=== PATIENT | male | born 1950 | race Caucasian/White ===

== ENCOUNTER 2016-08-06 11:14 | Observation (INO) | payer MEDICARE, OTHER ==
--- NOTE | ~2016-08-06 | CR72 ---
[facility] A Service of [facility] RADIOLOGY TEXT RESULTS PATIENT: CHRISTINE VALDEZ LOCATION: [facility] : 50 UNIT #: [id number] AGE: [address]: Rob Lassiter MD SEX: M ORDER DR: [id number] [id number] [facility]. [place], [place] [address] [id number] MR#: [id number] Acc #: [id number] NAME: CHRISTINE VALDEZ. : 1950 SEX: M STUDY DATE/TIME: 08/06/2016 10:31 UNIT: [facility] ROOM: STUDY DESCRIPTION: CR Chest Single View Portable Attending Physician: Sneha Carter M.D. Ordering Physician: Sneha Carter M.D. Primary Care Physician: Peng Chow M.D. MEDICAL IMAGING REPORT This report is preliminary unless electronic signature is present EXAM Chest portable, 08/06/2016 10:31 hours HISTORY 66-year-old man with left-sided chest pain, shortness of air and increased heart rate today. History of hypertension, smoking and diabetes. COMPARISON 06/25/2014 FINDINGS 2 upright portable chest films demonstrates stable heart size at the upper limits of normal and stable mildly tortuous aorta. There is diffuse pulmonary venous distension and mild cephalization with mild basilar interstitial prominence, increased over the comparison study 06/08/2014 suggesting an element of mild edema. No effusions are seen. IMPRESSION Stable heart size with pulmonary venous distension, mild cephalization and mild diffuse increase in the interstitial markings in the lungs as compared to 06/25/2014. Findings suggest an element of mild edema. No effusion seen. Dictated by... Zo Dixon M.D. THIS IS AN ELECTRONICALLY VERIFIED REPORT Zo Dixon M.D. at 08/06/2016 1:34 PM Bibiana TD: 08/06/2016 12:00 JOB #: [id number] [facility] A Service of [facility] RADIOLOGY TEXT RESULTS PATIENT: CHRISTINE VALDEZ [facility] [id number] : 50 UNIT #: [id number] AGE: [address]: Rob Lassiter MD SEX: M ORDER DR: MEDICAL IMAGING REPORT COPY
--- NOTE | ~2016-08-06 | EKG ---
PATIENT: CHRISTINE VALDEZ UNIT #: [id number] Ventricular Rate: 162 BPM Atrial Rate: 96 BPM QRS Duration: 114 ms Q-T Interval: 292 ms QTC Calculation(Bezet): 479 ms Calculated R [place]: 126 degrees Calculated T [place]: 1 degrees Diagnosis Line: Supraventricular tachycardia Diagnosis Line: Right axis deviation Diagnosis Line: Abnormal ECG Diagnosis Line: When compared with ECG of 06-AUG-2016 10:04, Diagnosis Line: (unconfirmed) Diagnosis Line: Vent. rate has increased BY 89 BPM Diagnosis Line: QRS axis Shifted right Diagnosis Line: Confirmed by LOLLY REYES MD ([id number]) on Diagnosis Line: 08/06/2016 3:28:10 PM INTERPRETING MD: ERIC PAL
--- NOTE | ~2016-08-06 | CO ---
Unit #: [id number] #: [id number] Patient: CHRISTINE VALDEZ [id number] [address] [place], [place] [address] [id number] I MR#: [id number] NAME: CHRISTINE VALDEZ. ROOM: 302 Age: 66 Sex: M Admission Date: 08/06/2016 : 1950 Attending Physician: Rob Lassiter M.D. Primary Care Physician: Peng Chow M.D. Requesting Physician: Rob Lassiter M.D. Consultation Date: 08/06/2016 CONSULTATION REPORT This is a 66-year-old white male with a past medial history of hypertension, SVT, diabetes, hyperlipidemia, nonobstructive coronary artery disease and angina. He presented on the morning of 08/06/16 with chest pain and, while in the ER, had an episode of atrial tachycardia. He states that he had his only episode of chest pain occur this morning when he was driving. 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 He stopped and was walking across the parking lot and that is when his chest pain was worse. When he stopped his activity and rested, the pain was more relieved. However, it was constant and present to some degree until he arrived to the ER and received medications including aspirin and nitro. He also tells me he had associated palpitations and was found to be in normal sinus rhythm on admission but converted to an atrial tachycardia and then converted back to normal sinus rhythm with six of adenosine which was given in the ER. The patient denies dyspnea on exertion, really shortness of breath at all. However, he did tell me that his pain was made worse with taking a deep breath. He has orthopnea, cannot lay flat at night but denies any PND. He denies any lower extremity edema. He denies any other episodes of chest pain. He has not had any recent fever or sickness. No change in stool. No blood noted to stool. Denied any diaphoresis and denied any nausea and vomiting. Cardiac enzymes once had been drawn in the ER which were negative. EKG showed normal sinus rhythm on admission. On tele review, he did have an episode of atrial type tachycardia. It was about 180 beats per minute, and was relieved back to normal sinus rhythm with adenosine. Cardiac testing includes last cath in 2014 at [facility]. I do not have details of that report but the patient tells me he had nonobstructive coronary artery disease. He also had a cath, which I have the report of, in 2007, done by Dr. Ingram. Diffuse coronary artery disease, mild to moderate, with right coronary dominant. There does not appear to be any rate limiting flow of the distal third of the LAD with some 50% to 60% stenosis. The vessel is small past that point. Normal LV function with normal left ventricular hemodynamics. He was recommended medical therapy at that time. He also had a 2D echo and a stress test which were unremarkable at that time. He denies any major change to his weight. His chest pain occurred to mid to left anterior chest right at the base of his ribs. Chest pain lasted about an hour. PAST MEDICAL HISTORY 1. Angina. 2. Hypertension. 3. Coronary artery disease, nonobstructive. Unit #: [id number] #: [id number] Patient: CHRISTINE VALDEZ 4. Hyperlipidemia. 5. Diabetes. PAST SURGICAL HISTORY Includes: 1. Appendectomy. 2. Cholecystectomy. 3. Knee surgery. SOCIAL HISTORY He has been a smoker. He smoked up to two packs per day for many years and he quite cold turkey in 2005 and has not resumed since. He is a nondrinker and denies any illicit drug use. 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 FAMILY HISTORY His mother very early at 43. She had an [place] and she of some complications from her heart at the age of 47. MEDICATIONS Home medications includes: 1. Glucophage 1000 mg b.i.d. 2. Glucotrol 5 mg daily. 3. Protonix 40 mg daily. 4. Imdur 30 mg daily. 5. Toprol XL 25 mg b.i.d. 6. Norvasc 5 mg daily. 7. Lipitor 10 mg daily. 8. Cozaar 100 mg daily. 9. Aspirin 325 daily. 10. At some point, he had been on Lotrel . However, he was taken off that due to an LEONELA-induced cough. ALLERGIES None. REVIEW OF SYSTEMS Twelve point review of systems was done as noted in the HPI. Otherwise, review of systems was negative. PHYSICAL EXAM VITAL SIGNS: Temperature 98.0, heart rate of 71, respirations 11, blood pressure 124/79. His weight is 101 kilos. His BMI is 72. HEENT: He is normocephalic, atraumatic with pupils equal, round, reactive to light and accommodation with extraocular movements intact. Oral mucosal membrane is moist. GENERAL: He is a well developed, well nourished male seen in ER trauma 2 room, in no acute distress. NEURO: He is alert and oriented x3, pleasant and cooperative. LUNGS: Mostly clear to auscultation bilaterally with some diminishment in the bases. He has decreased respiratory effort. CARDIOVASCULAR: He is in a regular rate and rhythm. S1, S2 noted. No murmurs, gallops rubs appreciated. He denies any chest wall tenderness. ABDOMEN: Mildly firm and distended but nontender. Bowel sounds are positive. EXTREMITIES: He has no edema noted and very palpable pulses. NECK: Supple with no JVD and no bruits auscultated. Unit #: [id number] #: [id number] Patient: CHRISTINE VALDEZ DIAGNOSTIC STUDIES CARDIOVASCULAR: EKG showed normal sinus rhythm, rate of 73. IMAGING: Chest x-ray on 08/06/16 showed mild edema with no effusion. Stable heart size. LABORATORY: Sodium 135, potassium 4, chloride 102, CO2 24, BUN 16, creatinine 0.8, glucose 214, mag is 1.6, BNP was 16. Coags were unremarkable. D-dimer was 290. Troponin was less than 0.05. WBC 6.4, hemoglobin 14.6, hematocrit 42.0, platelet count 102. IMPRESSION 1. Intermediate risk factors for coronary artery disease with a history of nonobstructive coronary artery disease. 2. Hypertension. 3. History of hyperlipidemia. 4. Diabetes. 5. Angina. 6. Obesity with a BMI of 32. PLAN Cardiology was asked to see him for his chest pain and a short course of SVT which appears to be atrial in origin with narrow complex. We are calling this atrial tachycardia. He does have symptoms of palpitations. We will check a 2D echo and do an exercise stress test on him in the a.m. He will need to be NPO for the stress test after midnight. We will resume his Cozaar 100 mg daily and Norvasc 5 mg daily with parameters to hold for systolic less than 100. Increase his Lipitor dose to 40 mg and check a fasting lipid panel. BMP, mag level and troponin will be checked in the a.m. A 12 lead EKG will also be obtained. We will get records sent over from [facility] for a recent heart cath that he had in 2014. His Toprol should be increased to 50 mg b.i.d. with parameters to hold for heart rate less than 16 and systolic BP less than 100 for his recurrent tachycardia episodes. His 325 aspirin will be changed to 81 daily. Thank you for this consult. We will continue to follow him throughout hospitalization. Further plan once tests are results. Dictated by... Dior Malloy APRN for Piedad Gloria TD: 08/07/2016 07:34 JOB #: [id number] Unit #: [id number] #: [id number] Patient: CHRISTINE VALDEZ CONSULTATION REPORT X X CONSULTATION REPORT
--- NOTE | ~2016-08-06 | EKG ---
PATIENT: CHRISTINE VALDEZ UNIT #: [id number] Ventricular Rate: 76 BPM Atrial Rate: 76 BPM P-R Interval: 202 ms QRS Duration: 106 ms Q-T Interval: 326 ms QTC Calculation(Bezet): 366 ms P [place]: 62 degrees Calculated R [place]: 57 degrees Calculated T [place]: 32 degrees Diagnosis Line: Normal sinus rhythm with sinus arrhythmia Diagnosis Line: Normal ECG Diagnosis Line: When compared with ECG of 06-AUG-2016 10:38, Diagnosis Line: (unconfirmed) Diagnosis Line: Sinus rhythm has replaced Atrial fibrillation Diagnosis Line: Vent. rate has decreased BY 60 BPM Diagnosis Line: Confirmed by LOLLY REYES MD ([id number]) on Diagnosis Line: 08/06/2016 3:28:14 PM INTERPRETING MD: ERIC PAL
--- NOTE | ~2016-08-06 | EKG ---
PATIENT: CHRISTINE VALDEZ UNIT #: [id number] Ventricular Rate: 136 BPM Atrial Rate: 122 BPM QRS Duration: 102 ms Q-T Interval: 286 ms QTC Calculation(Bezet): 430 ms Calculated R [place]: 94 degrees Calculated T [place]: -4 degrees Diagnosis Line: Atrial fibrillation with rapid ventricular Diagnosis Line: response Diagnosis Line: Rightward axis Diagnosis Line: Abnormal QRS-T angle, consider primary T wave Diagnosis Line: abnormality Diagnosis Line: Abnormal ECG Diagnosis Line: When compared with ECG of 06-AUG-2016 10:33, Diagnosis Line: (unconfirmed) Diagnosis Line: Atrial fibrillation has replaced Sinus rhythm Diagnosis Line: Confirmed by LOLLY REYES MD ([id number]) on Diagnosis Line: 08/06/2016 3:27:49 PM INTERPRETING MD: ERIC PAL
--- NOTE | ~2016-08-06 | TH ---
Unit #: [id number] #: [id number] Patient: CHRISTINE VALDEZ [id number] [address] [address] [id number] I MR#: [id number] NAME: CHRISTINE VALDEZ : 1950 SEX: M STUDY DATE/TIME: UNIT: C3A U ROOM: [address] [place] [address] DESCRIPTION: Nuclear Study Attending Physician: Rob Lassiter M.D. Primary Care Physician: Peng Chow M.D. CARDIOLOGY REPORT EXAM Nuclear Study Please see stress test for results of Nuclear Study. Dictated by... Mariusz Marmolejo M.D. NKAlla/jannet TD: 08/09/2016 11:02 JOB #: [id number] CARDIOLOGY REPORT X Mariusz Marmolejo MD CARDIOLOGY REPORT
--- NOTE | ~2016-08-06 | EKG ---
PATIENT: CHRISTINE VALDEZ UNIT #: [id number] Ventricular Rate: 73 BPM Atrial Rate: 73 BPM P-R Interval: 186 ms QRS Duration: 106 ms Q-T Interval: 378 ms QTC Calculation(Bezet): 416 ms P [place]: 24 degrees Calculated R [place]: -13 degrees Calculated T [place]: 3 degrees Diagnosis Line: Normal sinus rhythm Diagnosis Line: Normal ECG Diagnosis Line: When compared with ECG of 25-JUN-2014 17:43, Diagnosis Line: Inverted T waves have replaced nonspecific T wave Diagnosis Line: abnormality in Inferior leads Diagnosis Line: Confirmed by LOLLY REYES MD ([id number]) on Diagnosis Line: 08/06/2016 3:27:37 PM INTERPRETING MD: ERIC PAL
--- NOTE | ~2016-08-06 | EKG ---
PATIENT: CHRISTINE VALDEZ UNIT #: [id number] Ventricular Rate: 68 BPM Atrial Rate: 68 BPM P-R Interval: 202 ms QRS Duration: 108 ms Q-T Interval: 398 ms QTC Calculation(Bezet): 423 ms P [place]: 57 degrees Calculated R [place]: 19 degrees Calculated T [place]: 17 degrees Diagnosis Line: Normal sinus rhythm Diagnosis Line: Normal ECG Diagnosis Line: When compared with ECG of 06-AUG-2016 10:39, Diagnosis Line: No significant change was found Diagnosis Line: Confirmed by LOLLY REYES MD ([id number]) on Diagnosis Line: 08/08/2016 11:23:16 AM INTERPRETING MD: ERIC PAL
--- NOTE | ~2016-08-06 | ST ---
Unit #: [id number] #: [id number] Patient: CHRISTINE VALDEZ [id number] [address] [address] [id number] I MR#: [id number] NAME: CHRISTINE VALDEZ. : 1950 SEX: M STUDY DATE/TIME: UNIT: C3A U ROOM: [facility] STUDY DESCRIPTION: Stress Test/Nuclear Study Attending Physician: Rob Lassiter M.D. Primary Care Physician: Peng Chow M.D. CARDIOLOGY REPORT EXAM Combined EKG and nuclear part of the test. DESCRIPTION Baseline heart rate is 73 beats per minute, blood pressure 153/102. Patient exercised on modified Carlos protocol for 9 minutes 35 seconds achieving 7.50 METs. Peak heart rate 137 beats per minute which is 88% of predicted heart rate. Peak blood pressure is 202/114. Patient's baseline EKG showing sinus rhythm with incomplete right bundle branch block. During exercise recovery, no further ST-T changes. The patient also received 10.42 mCi of Cardiolite at rest and 29.8 mCi of Cardiolite during stress. Both sets of images were compared. The patient shows fairly uniform uptake of radiotracer. No defect was noted. Patient has gated SPECT scan done which shows normal LV size and function, ejection fraction is 63%. INTERPRETATION OF THE TEST 1. Average exercise tolerance. 2. Hypertensive response to exercise with uncontrolled hypertension which means the patient's hypertension is poorly controlled. 3. EKG part of the test negative for stress-induced ischemia. 4. Nuclear part of the test negative for myocardial ischemia. 5. Gated SPECT scan shows normal LV size and function. Dictated by... Piedad Mendez/jannet TD: 08/09/2016 10:57 JOB #: [id number] Unit #: [id number] #: [id number] Patient: CHRISTINE VALDEZ CARDIOLOGY REPORT X Mariusz Marmolejo MD CARDIOLOGY REPORT
--- NOTE | ~2016-08-06 | HP ---
Unit #: [id number] #: [id number] Patient: CHRISTINE VALDEZ [id number] [address] [place], [place] [address] [id number] I MR#: [id number] NAME: CHRISTINE VALDEZ. ROOM: 302 Age: 66 Sex: M Admission Date: 08/06/2016 : 1950 Attending Physician: Rob Lassiter M.D. Primary Care Physician: Peng Chow M.D. HISTORY AND PHYSICAL HISTORY OF PRESENT ILLNESS The patient is a 66-year-old white male with a history of osteoarthritis, left total knee replacement, chronic low back pain secondary to herniated disc, hypertension, type 2 diabetes mellitus, coronary artery disease, nonobstructive, by cardiac cath following an abnormal stress test about a year and a half to two years ago at [facility], history of colonic polyps, diverticular disease, GE reflux disease, who presents to the emergency room with sudden onset of chest pain this morning while walking. When he got back to his truck he sat down and it improved but did not resolve. He was then brought to the emergency room by a coworker. Here he was given Nitrostat and immediately went into SVT, treated with adenosine and converted back to a sinus rhythm. Initial cardiac enzymes are normal but he has only had one set so far. His initial EKG was fairly unremarkable. D-dimer was normal as well. Rest of his labs were fairly unremarkable except for a slightly low platelet count of 102,000. ALLERGIES He has no known drug allergies. MEDICATIONS Meds prior to admission: 1. Glucophage 1000 mg b.i.d. 2. Glucotrol 5 mg daily. 3. Protonix 40 mg daily. 4. Imdur ER 30 mg daily. 5. Toprol-XL 25 mg b.i.d. 6. Norvasc 5 mg daily. 7. Lipitor 10 mg daily. 8. Cozaar 100 mg daily. 9. Aspirin 325 mg daily. 10. Lotrel 5/40 one p.o. daily. 11. Coreg ER 40 mg daily. PAST MEDICAL HISTORY Again he has a history of hypertension and hyperlipidemia, type 2 diabetes mellitus, lumbar spinal stenosis, nonobstructive coronary artery disease, GE reflux disease, allergic rhinitis, diverticular disease, colonic polyps. PAST SURGICAL HISTORY Left total knee replacement, cholecystectomy, appendectomy, right elbow repair, cardiac cath, polypectomy. 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 FAMILY HISTORY Family history is noncontributory. PHYSICAL EXAMINATION GENERAL: On physical exam he is awake, alert, oriented x3, in no acute distress. VITAL SIGNS: Afebrile, pulse 84, respirations 16, blood pressure 159/97, room air O2 sat 99%. HEENT: HEENT is unremarkable except for nasal cannula in place. NECK: Neck was supple, without JVD, bruits, adenopathy or thyromegaly. CHEST: Clear to auscultation. HEART: Heart has a regular rate and rhythm without any murmurs, gallops or rubs. ABDOMEN: Abdomen was large, soft, nondistended, nontender, with positive bowel sounds and no hepatosplenomegaly. EXTREMITIES: Show no clubbing, cyanosis and trace bilateral lower extremity edema. GENITOURINARY: Deferred. ANO-RECTAL: Deferred. NEUROLOGIC: Exam is grossly intact. DIAGNOSTIC STUDIES LABORATORY VALUES: Cardiac enzymes normal. CBC normal except for a platelet count of 102,000. CMP normal except for a random blood sugar at 214. D-dimer of 290. PT and INR of 1.0. BNP is 16. Magnesium 1.6. TSH 2.71. LDL 64. IMAGING: Chest x-ray questionable mild pulmonary edema. CARDIOVASCULAR: EKG #1 showed normal sinus rhythm, some nonspecific T inversions in the inferior leads which are probably not significant. EKG #2 afib. EKG #3 SVT. EKG #4 back into sinus rhythm. IMPRESSION 1. Chest pain. 2. History of nonobstructive coronary artery disease by cardiac catheterization within the past two years. 3. Paroxysmal supraventricular tachycardia likely induced by the Nitrostat. The patient does give a history of palpitations off and on in the past. 4. Hypertension. 5. Thrombocytopenia. 6. Type 2 diabetes mellitus. 7. Osteoarthritis. 8. Lumbar spinal stenosis. 9. History of colonic polyps. 10. Gastroesophageal reflux disease. 11. Hyperlipidemia. 12. History of diverticular disease. 13. Status post left total knee replacement. 14. Status post appendectomy. Unit #: [id number] #: [id number] Patient: CHRISTINE VALDEZ 15. Status post cholecystectomy. 16. Status post right elbow repair. PLAN Serial cardiac enzymes, EKG, Cardiology consulted, nitroglycerin paste, Lovenox, aspirin, beta blockers, 2D echo and Cardiolite planned for tomorrow is enzymes are negative. Hold Glucophage while here at the hospital. There is obviously no reason for the patient to be on Coreg and metoprolol and Cardiology has increased his metoprolol and discontinued the Coreg. There is also no reason for him to be on an LEONELA inhibitor and Cozaar and the Lotrel has been discontinued and changed to plain Norvasc. He will be placed on Accu-Cheks a.c. and h.s. and low dose sliding scale insulin. Further evaluation pending results of the above. Dictated by Piedad Byrd/maya TD: 08/06/2016 17:50 JOB #: [id number] HISTORY AND PHYSICAL X Rob Lassiter MD HISTORY AND PHYSICAL
[2016-08-06 10:37] LABS: POC - CKMB <1.0 ng/mL (0.0-7.9); POC - TROPONIN <0.05 ng/mL (<=0.05)
[2016-08-06 10:57] LABS: BASOPHIL# 0.1 X10e3 (0-0.3); EOSINOPHIL# 0.2 X10e3 (0-0.7); EOSINOPHIL% 2.8 % (0.0-7.0); HEMOGLOBIN 14.6 gm/dL (13.0-16.0); LYMPHOCYTE# 1.3 X10e3 (1.0-3.5); LYMPHOCYTE% 20.9 % (17.0-45.0); MEAN CELL VOLUME 87.7 FL (83-96); MEAN CORPUSCULAR HEMOGLOBIN 30.5 PG (28-34); MEAN CORPUSCULAR HGB CONC 34.8 g/dL (30-36); MEAN PLATELET VOLUME 9.8 FL (6.5-11.5); MONOCYTE# 0.9 X10e3 (0-1.0); NEUTROPHIL# 3.9 X10e3 (1.5-7.1); NEUTROPHIL% 61.3 % (40-75); PLATELET COUNT 102 X10e3 (140-420); RED BLOOD COUNT 4.79 X10e (3.90-5.60); RED CELL DISTRIBUTION WIDTH 13.4 % (11.0-15.5); WHITE BLOOD COUNT 6.4 X10e3 (4.0-10.5)
[2016-08-06 10:59] LABS: DIFF IND NO
[2016-08-06 11:08] LABS: PROTHROMBIN TIME (PATIENT) 10.9 SECONDS (9.6-11.5)
[~2016-08-06 11:14] MED LIST: ASPIRIN PO; ATORVASTATIN CA10 MG PO; CHOLESTEROL PILL; COREG PO; COUMADIN7.5 MG PO; GLUCOTROL PO; HYDROCODONE-APA1 T55 PO; IMDUR PO; IMDUR-ER30 M1 PO; LIPITOR; LOTREL 5/401 CAP PO; LOTREL PO; METFORMIN HCL500 M1 PO; METFORMIN PO; NORVASC PO; PREVACID PO; PROTONIX PO; TOPROL XL PO; TYLENOL325 M1 PO
[2016-08-06] MEDS ORDERED: LIPITOR PO (11:15)
[2016-08-06 11:29] LABS: ALBUMIN SERUM 4.2 g/dL (3.5-5.0); ALKALINE PHOSPHATASE 62 U/L (32-92); ALT (SGPT) 26 U/L (10-40); AST (SGOT) 21 U/L (10-42); BILIRUBIN, DIRECT 0.2 mg/dL (0.0-0.2); BILIRUBIN,INDIRECT 0.6 mg/dL (0.0-0.9); BILIRUBIN,TOTAL 0.8 mg/dL (0.2-2.0); BLOOD UREA NITROGEN 16 mg/dL (9-23); CARBON DIOXIDE 24 mmol/L (22-31); CHLORIDE 102 mmol/L (100-111); CREATININE SERUM 0.8 mg/dL (0.6-1.4); GLOM FILT RATE Estimated ABOVE60 mL/min (>60); GLUCOSE FASTING 214 mg/dL (70-110); SODIUM 135 mmol/L (135-145)
[2016-08-06] MEDS ORDERED: IMDUR-ER30 M3 PO (12:49)
[2016-08-06] MEDS ORDERED: COZAAR100 MG PO (12:49)
[2016-08-06] MEDS ORDERED: BAYER ASPIRIN325 M1 PO (12:50)
[2016-08-06] MEDS ORDERED: COREG PO (12:53)
[2016-08-06] MEDS ORDERED: LOTREL 5/401 CAP PO (12:53)
[2016-08-06 15:23] LABS: CHOLESTEROL 120 mg/dL (0-200); HDL CHOLESTEROL 30 mg/dL (29-75); LDL CHOLESTEROL 64 mg/dL (-130); LDL/HDL RATIO 2 RATIO (0-4); TRIGLYCERIDES 129 mg/dL (10-160)
[2016-08-06 19:33] LABS: %MB 3.5 % (0.0-4.0); MB 2.1 ng/ml
[2016-08-07 00:52] LABS: CK TOTAL 50 IU/L (36-174)
[2016-08-07 04:26] LABS: HEMATOCRIT 42.3 % (38.0-50.0); HEMOGLOBIN 14.6 gm/dL (13.0-16.0); MEAN CELL VOLUME 87.7 FL (83-96); MEAN CORPUSCULAR HEMOGLOBIN 30.3 PG (28-34); MEAN CORPUSCULAR HGB CONC 34.5 g/dL (30-36); MEAN PLATELET VOLUME 9.1 FL (6.5-11.5); RED BLOOD COUNT 4.82 X10e (3.90-5.60); RED CELL DISTRIBUTION WIDTH 13.4 % (11.0-15.5); WHITE BLOOD COUNT 7.4 X10e3 (4.0-10.5)
[2016-08-07 05:05] LABS: BLOOD UREA NITROGEN 18 mg/dL (9-23); CALCIUM SERUM 8.4 mg/dL (8.4-10.2); CARBON DIOXIDE 26 mmol/L (22-31); CHLORIDE 101 mmol/L (100-111); CHOLESTEROL 120 mg/dL (0-200); CREATININE SERUM 0.8 mg/dL (0.6-1.4); GLOM FILT RATE Estimated ABOVE60 mL/min (>60); GLUCOSE FASTING 173 mg/dL (70-110); HDL CHOLESTEROL 23 mg/dL (29-75); LDL CHOLESTEROL 53 mg/dL (-130); LDL/HDL RATIO 2 RATIO (0-4); MAGNESIUM 1.7 mg/dL (1.6-3.0); POTASSIUM 3.9 mmol/L (3.5-5.1); SODIUM 133 mmol/L (135-145); TRIGLYCERIDES 218 mg/dL (10-160)
[2016-08-08 05:48] LABS: HEMATOCRIT 41.2 % (38.0-50.0); HEMOGLOBIN 14.4 gm/dL (13.0-16.0); MEAN CELL VOLUME 87.1 FL (83-96); MEAN CORPUSCULAR HEMOGLOBIN 30.5 PG (28-34); MEAN CORPUSCULAR HGB CONC 35.1 g/dL (30-36); MEAN PLATELET VOLUME 9.6 FL (6.5-11.5); RED BLOOD COUNT 4.73 X10e (3.90-5.60); RED CELL DISTRIBUTION WIDTH 13.8 % (11.0-15.5); WHITE BLOOD COUNT 6.8 X10e3 (4.0-10.5)
[2016-08-08] MEDS ORDERED: CARDIZEM30 M2 PO (10:02)
[2016-08-08] MEDS ORDERED: YOSPRALA DR 811 EACH PO (10:05)
== END 2016-08-08 12:30 | disposition home or self-care (01) ==
LOC: CED 11:14 → CEDOF 12:30 → C3A PCU 17:10
PROVIDERS: Emergency Medicine; Internal Medicine
DX: R07.89 Other chest pain (principal); I25.10 Atherosclerotic heart disease of native coronary artery without angina pectoris; I47.1 Supraventricular tachycardia; I10 Essential (primary) hypertension; D69.6 Thrombocytopenia, unspecified; E11.9 Type 2 diabetes mellitus without complications; M19.90 Unspecified osteoarthritis, unspecified site; M48.06 Spinal stenosis, lumbar region; Z86.010 Personal history of colon polyps; K21.9 Gastro-esophageal reflux disease without esophagitis; E78.5 Hyperlipidemia, unspecified; Z79.4 Long term (current) use of insulin; Z96.652 Presence of left artificial knee joint; Z90.49 Acquired absence of other specified parts of digestive tract; F17.200 Nicotine dependence, unspecified, uncomplicated; Z82.49 Family history of ischemic heart disease and other diseases of the circulatory system; Z79.84 Long term (current) use of oral hypoglycemic drugs; Z79.82 Long term (current) use of aspirin
CPT/HCPCS: 71010; 78452; 80048; 80061; 80076; 82550; 82553; 82947; 83735; 83880; 84443; 84484; 85025; 85027; 85379; 85610; 93005; 93017; 93306; 96372; 96374; 99291; A9500; G0378; J0153; J1650; J1815